=== PATIENT | male | born 1945 | race Caucasian/White ===

== ENCOUNTER 2020-09-16 06:39 | Day surgery (SDC) | payer MEDICARE, OTHER ==
[2020-09-16] VITALS (7 sets, daily range): BP systolic 140–163; BP diastolic 81–95; PULSE 84–94; TEMP 97.7–98.2
[~2020-09-16] VITALS: Ht 175.3 cm; Wt 104.4 kg
[2020-09-16] MEDS ORDERED: ASPIRIN 81M81 MG/TA2 PO (07:31)
[2020-09-16] MEDS ORDERED: ZESTRIL 20MG TA20 MG PO (07:32)
[2020-09-16] MEDS ORDERED: HCTZ 25MG TAB25 MG PO (07:32)
[2020-09-16] MEDS ORDERED: ZOCOR 40MG40 MG PO (07:32)
[2020-09-16] MEDS ORDERED: ZERVIATE1 EACH OP (07:34)
[2020-09-16] MEDS ORDERED: UROXATRAL10 M1 PO (07:36)
[2020-09-16] MEDS ORDERED: PRILOSEC 20MG20 MG PO (07:36)
[2020-09-16] MEDS ORDERED: ONE-A-DAY ESSE1 EACH PO (07:37)
[2020-09-16] MEDS ORDERED: MAGNESIUM ELEM300 MG PO (07:37)
[2020-09-16] MEDS ORDERED: PREVAGEN PO (07:38)
[2020-09-16] MEDS ORDERED: KRILL OIL 3001 EACH PO (07:39)
[2020-09-16] MEDS ORDERED: GLUCOSAMINE CHO1 TAB PO (07:39)
[2020-09-16] MEDS ORDERED: PROBIOTIC FORMU1 CAP PO (07:40)
[2020-09-16] MEDS ORDERED: TUMS DUAL ACTIO1 CTB (07:41)
[2020-09-16] MEDS ORDERED: GINKGO3 PO (07:42)
[2020-09-16] MEDS ORDERED: MOBIC15 MG PO (07:43)
[2020-09-16] MEDS ORDERED: PROSCAR 5MG5 MG PO (07:44)
--- NOTE | 2020-09-16 11:40 | NUR ---
TO RM 7 PER CART FROM PACU. OPENS EYES TO VERBAL STIMULI AND FALLS BACK TO SLEEP. INCISIONS CLEAN DRY INTACT WITH [employer].
[2020-09-16] MEDS ORDERED: ULTRAM 50MG TAB50 MG PO (11:46)
--- NOTE | 2020-09-16 11:55 | NUR ---
MORE AWAKE AND TALKING TO STAFF. RECEIVED WATER AND TAKING SIPS. DENIES NAUSEA C/O PAIN /10 AT CURRENT TIME. RECEIVED WATER
--- NOTE | 2020-09-16 12:10 | NUR ---
DRINKING WATER AND RECEIVED CRACKERS.
--- NOTE | 2020-09-16 12:30 | NUR ---
RECEIVED CRACKERS AND ATE 2PKG RECEIVED NORCO 5MG 1 TAB DISCONTINUED O2
--- NOTE | 2020-09-16 13:00 | NUR ---
ENCOURAGED PATIENT TO TAKE DEEP BREATHS AND SATS UP TO 96-97%.
--- NOTE | 2020-09-16 13:30 | NUR ---
PATIENT STATED PAIN MED HAS HELPED AND WANTING TO GO HOME. AMBULATED TO BATHROOM. VOIDED AND AMBULATED BACK TO .
--- NOTE | 2020-09-16 13:40 | NUR ---
RECEIVED DISCHARGE INSTRUCTIONS AND VERBALIZED UNDERSTNDING. DISCONTINUED IV AND INT. CATHETER INTACT. PATIENT GETTING DRESSED AND CALLED NEIGHBOR FOR RIDE HOME.
--- NOTE | 2020-09-16 14:00 | NUR ---
DISCHARGED PER WC BY NURSING STAFF TO PRIVATE CAR IN CARE OF FRIEND HAYDEN.
== END 2020-09-16 15:09 | disposition home or self-care (01) ==
LOC: SDCO 06:39
DX: K42.9 Umbilical hernia without obstruction or gangrene (principal); I10 Essential (primary) hypertension; G47.33 Obstructive sleep apnea (adult) (pediatric); E78.5 Hyperlipidemia, unspecified; K21.9 Gastro-esophageal reflux disease without esophagitis; G89.29 Other chronic pain; M54.5 Low back pain; M17.11 Unilateral primary osteoarthritis, right knee; Z20.822 Contact with and (suspected) exposure to COVID-19; Z79.899 Other long term (current) drug therapy; Z79.1 Long term (current) use of non-steroidal anti-inflammatories (NSAID); Z79.82 Long term (current) use of aspirin
CPT/HCPCS: C1781; J0330; J0360; J1885; J2704; J3010; J7120